=== PATIENT | female | born 1945 | race Caucasian/White ===

== ENCOUNTER 2016-09-19 09:36 | Day surgery (SDC) | payer MEDICARE ==
[~2016-09-19 09:36] MED LIST: RINGERS SOLUTION,LACTATED 1,000 ML IV PRN
--- OUTSIDE RECORDS SUMMARY | 2016-09-19 09:40 | XMS REPORT | Continuity of Care Document ---
:1945 Author Organization [facility] ([facility]) [place] [address] Phone [phone] Care Team Providers Name Role Phone Louis Moore Primary Care Provider [phone] Source Comments This disclosure is being made pursuant to the Care Everywhere program, applicable federal and state laws, and may not contain all informaitonavailable regarding this patient.[facility] ([facility]) Active Allergies and Adverse Reactions Allergen Noted Date Severity Reactions Comments Other Agent 01/18/2016 OTHER Adhesive tape. If left on to long her skin begins to burn and itch Current Medications Prescription Sig. Disp. Refills Start Date End Date Status lisinopril-hydrochlorot Take 2 Tabs by 09/20/2012 Active hiazide 20-12.5 mg per mouth daily tablet metoPROLol succinate Take 100 mg by 09/20/2012 Active 100 mg XL tablet mouth 2 times daily atorvastatin 80 mg 80 mg at 10/12/2015 Active tablet bedtime. traMADol 50 mg tablet Take 50 mg by 09/30/2015 Active mouth as needed. FLECAINIDE 150 mg TAKE ONE-HALF 180 tablet 3 12/30/2015 Active tablet (1/2) TABLET EVERY 12 HOURS Active Problems Problem Noted Date Raynaud's syndrome 10/16/2014 Essential hypertension, benign 10/11/2014 Hypercholesterolemia without hypertriglyceridemia 10/17/2013 Episodic atrial fibrillation Overview: Formatting of this note may be different from the original. CARDIOVASCULAR PROCEDURES ECHO/MUGA: FRANCES (There is mild concentric left ventricular hypertrophy. Left ventricular systolic function is normal. There is mild to moderate mitral regurgitation. No thrombus is detected in the left atrial appendage. 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/11/2014 Pain in joint, hand 12/09/2005 10/11/2014 Social History Tobacco Use Types Packs/Day Years Used Date Never Smoker Smokeless Tobacco: Never Used Alcohol Use Drinks/Week oz/Week Comments Yes 2 Cans of beer Last Filed Vital Signs Vital Sign Reading Time Taken Blood Pressure 138/63 01/29/2016 10:23 AM CDT Pulse 57 01/29/2016 10:23 AM CDT Temperature 36.9 C (98.42 F) 06/13/2008 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 Respiratory Rate - - Height 1.702 m (5' 7.01") 01/18/2016 3:08 PM CDT Weight 82.6 kg (182 lb 1.6 oz) 01/18/2016 3:08 PM CDT Body Mass Index 28.51 01/18/2016 3:08 PM CDT Oxygen Saturation - - Plan of Care Date Type Specialty Providers Description 11/29/2016 Appointment Heart and Vascular Tavia Aguirre MD Subj: Appointment [address] [place] [address] [phone] (Fax) Health Maintenance Due Date Last Done Comments HCV Screening 1945 Hepatitis B Vaccine (1 of 3 - Primary Series) 1945 Tdap Vaccine 1957 Lipid Disorder Screening 1964 Td Vaccine 1964 Mammogram 1986 Colonoscopy 09/10/1996 Zoster Vaccine 2006 Osteoporosis Screening (DXA Bone Density) 09/12/2011 Pneumococcal Vaccine (1 of 2 - PCV13) 09/12/2011 Influenza Vaccine: Seasonal (Season Ended) 2016 Results from Last 3 Months Not on file
[2016-09-19] MEDS ORDERED: RINGERS SOLUTION,LACTATED 1,000 ML IV PRN (11:23)
[2016-09-19 12:38] VITALS: BP 102/42
--- NOTE | 2016-09-19 17:37 | OR ---
Operative Report - Dictated Report Narrative: OPERATIVE REPORT DATE OF OPERATION: 09/19/2016 PREOPERATIVE DIAGNOSIS: No recent dedicated colon studies. History of colon "polyps" POSTOPERATIVE DIAGNOSIS: Sigmoid diverticulosis OPERATION: Colonoscopy SURGEON: Baylee Santiago MD ANESTHESIA: ILANA Kim CRNA INDICATIONS FOR PROCEDURE: The patient is a 70-year-old female referred by Dr. Moore. Her last colonoscopy was in 2006. The report mentions removal of a polyp, but the pathology report is not available. There is no family history of colon cancer. The patient has somewhat irregular bowel habit. FINDINGS: Sigmoid diverticulosis, somewhat redundant colon, otherwise normal colonoscopy to the cecum NARRATIVE OF PROCEDURE: The patient was identified in the holding area, and prior to the administration of anesthetic, a multidisciplinary timeout was observed. With the patient in the left lateral position and after the administration of intravenous sedation, the perineum was inspected. There was no evidence of pilonidal disease or skin breakdown. The external appearance of the anus was normal. Sphincter tone was good. The flexible fiberoptic colonoscope was inserted into the rectum which was insufflated with air. The rectal mucosa and submucosal vascular pattern appeared normal, the prep was seen to be complete. The scope was advanced through the sigmoid colon, which contained numerous not impacted noninflamed diverticular openings. The scope was advanced up the descending colon, and around the splenic flexure where the triangular haustral architecture of the transverse colon was seen. The scope was advanced across the transverse colon, around the hepatic flexure to the cecum, where the confluence of tenia and the ileocecal valve were identified. The mucosa at this level appeared normal. The scope was then slowly withdrawn in a circular fashion so that all aspects of colonic mucosa were inspected. The colon was redundant in course and slightly capacious in character requiring the use of standard reduction maneuvers to reach the cecum. The haustral architecture appeared well preserved throughout with no evidence of external compression. The mucosa and submucosal vascular pattern appeared normal, specifically there was no gross evidence to suggest colitis or inflammatory bowel disease and no AV malformations were seen. The diverticulosis was moderate in degree and confined primarily to the sigmoid colon. No polyps were encountered. The scope was gradually withdrawn to the level of the rectum. As much insufflated air as possible was removed. The scope was withdrawn from the patient and the procedure terminated. The patient tolerated the anesthetic and procedure well without complication and was transferred back to the ambulatory surgery area awake and in stable condition. The patient remained stable throughout a period of postoperative observation. She denied abdominal discomfort, was able to tolerate by mouth intake, and was up without assistance. I shared the operative findings with the patient and she was given copies of the photographs which appear in the medical record. She was discharged home with instructions not to engage in hazardous activity today , but may resume normal activity tomorrow, and advance diet as tolerated. She is to continue those medications as listed in the history and physical exam. A pamphlet on diverticular disease was reviewed with her and given to her RECOMMENDATION: Colon surveillance in 10 years depending upon findings and symptoms Reviewed and electronically signed
== END 2016-09-19 09:37 | disposition home or self-care (01) ==
LOC: AMB 09:36
PROVIDERS: ATTEND Surgery
PROC: 0DJD8ZZ Inspection of Lower Intestinal Tract, Via Natural or Artificial Opening Endoscopic (ICD-10-PCS; principal; 2016-09-19 11:00)
DX: Z12.11 Encounter for screening for malignant neoplasm of colon (principal); K57.30 Diverticulosis of large intestine without perforation or abscess without bleeding; I10 Essential (primary) hypertension; I48.91 Unspecified atrial fibrillation; E78.5 Hyperlipidemia, unspecified; D64.9 Anemia, unspecified; Z68.29 Body mass index [BMI] 29.0-29.9, adult; Z86.010 Personal history of colon polyps

== ENCOUNTER 2017-05-24 09:59 | Observation (INO) | payer MEDICARE ==
--- NOTE | 2017-05-24 10:19 | ERNOTE ---
CARDIAC HPI - Narrative Date of Service: 05/24/17 - General Time Seen by Provider: 05/24/17 10:06 Source: patient Exam Limitations: no limitations - History of Present Illness Initial Comments: Pt. comes in with 18 hour c/o palpitations. Pt. also states that she has begun to feel weak and fatigued for 6 hours and states that she is feeling worse the longer that she is up. Pt. denies any SOB, CP, NVD, fever, alleviating factors or aggravating factors. Pt. states taht she was here a week ago and cardioverted and her medications were changed and she improved until last night. Timing/Duration: getting worse Severity: mild Activities at Onset: none Modifying Factors - (Improves): Reports: none Modifying Factors - (Worsens): Reports: movement Nitro Today/Relief: no nitro taken today Aspirin Treatment Today: no aspirin today Associated Symptoms: Present: malaise, weakness. Absent: shortness of breath - Immun/Allergies/Home Medicatons Immunizations: IMMUNIZATION HX Immunizations Up to Date Yes History of Influenza Vaccine Yes Hx Pneumococcal Vaccination Yes Allergies/Adverse Reactions: Allergies Allergy/AdvReac Type Severity Reaction Status Date / Time adhesive Allergy Mild TAPE Verified 05/24/17 10:15 CAUSES RASH/HIVES Home Medications: Ambulatory Orders Medication Instructions Recorded Atorvastatin Calcium [Lipitor] 80 mg PO HS 03/26/14 Metoprolol Succinate [Toprol Xl] 100 mg PO BID 03/26/14 Polyethylene Glycol 3350 [Miralax] 17 gm PO DAILY PRN 03/26/14 Albuterol Sulfate [Ventolin HFA] 1 - 2 puff IH Q6H PRN 09/09/16 Fluticasone Propionate [Flonase] 1 spray NS DAILY 09/09/16 Apixaban [Eliquis] 5 mg PO BID 05/11/17 Flecainide Acetate 100 mg PO BID #60 tablet 05/12/17 Lisinopril [Zestril] 20 mg PO BID 05/18/17 traMADol HCL [Ultram] 100 mg PO TID PRN 05/18/17 Hydrochlorothiazide [Hydrodiuril] 25 mg PO DAILY #30 tablet 05/19/17 Omeprazole 40 mg PO DAILY #30 capsule. 05/19/17 Potassium Chloride [K-Dur] 20 meq PO DAILY tablet. 05/19/17 Review of Systems - Review of Systems Constitutional: Present: fatigue, malaise, weakness. Absent: fever, recent illness, sweating EENTM: Present: no symptoms reported Respiratory: Present: no symptoms reported. Absent: cough, orthopnea, short of breath Cardiology: Present: palpitations. Absent: chest pain Gastrointestinal/Abdominal: Present: no symptoms reported. Absent: abdominal pain, nausea, vomiting Genitourinary: Present: no symptoms reported Musculoskeletal: Present: no symptoms reported. Absent: back pain, neck pain Skin: Present: no symptoms reported. Absent: change in color, lesions, lumps, rash Neurological: Present: no symptoms reported. Absent: dizziness/light-headness, headache, numbness All Other Systems: All systems neg except as marked - Patient's Past Medical History Patient History - Medical: Anemia, Arthritis, Osteoarthritis, Renal Failure Patient History - Cardiac/Respiratory: Atrial Fibrillation, Bronchitis, Hypertension, Hyperlipidemia Patient History - Cancer: No Hx of Cancer Patient History - Surgical Procedures: Appendectomy, Cataracts, Colonoscopy, Hysterectomy, Total Hip Replacement Patient History - Other: None - Family History Mother Family History - Medical: , No pertinent hx Family History - Cardiac/Respiratory: Asthma Family History - Cancer: Other Father Family History - Medical: , No pertinent hx Family History - Cardiac/Respiratory: COPD, Other Family History - Cancer: Other - Social History Abuse History: No History of abuse Psych History: No pertinent hx - Immunizations Immunizations Up to Date: Yes Hx Pneumococcal Vaccination: Yes History of Influenza Vaccine: Yes CP Exam - Physical Exam General Appearance: Present: WD/WN, no apparent distress ED Progress - Date and Time Seen: Date and Time: 05/24/17 10:[address] Tavia Aguirre and discussed with her nurse Roge as Dr Aguirre is in a patient room. 05/24/17 12:17 Roge returned call after I called back and requested once again to speak with Dr Aguirre. roge relayed per Dr Aguirre that as pt. is chronic with this she feels that this is not emergent and that she can be seen tomorrow when she is here. Discussed with Dr Moore and he is accepting of pt. for obs. - PROGRESS/REASSESSMENT Condition: Unchanged - VITAL SIGNS Patient's Vital Signs:: I have reviewed the patient's vital signs. Vital Signs Temp Pulse Resp BP Pulse Ox 36.1 C L 86 14 111/66 100 05/24/17 10:07 05/24/17 10:40 05/24/17 10:07 05/24/17 10:40 05/24/17 10:40 - RESULTS AND ORDERS Patient's Lab Results:: I have reviewed the patient's lab results. Results and Orders: 05/24/17 12:21 Abnormal Lab Results 05/24/17 05/24/17 05/24/17 Range/Units 10:15 10:15 10:56 RBC 4.14 L (4.2-5.4) M/mm3 Hct 36.6 L (37.0-47.0) % MPV 11.0 H (6.0-9.5) fl Neutrophils % 77.4 H (42-75.0) % Lymphocytes % 14.6 L (20-51) % Lymphocytes # 0.9 L (1.5-3.5) k/mm3 Potassium 3.3 L (3.4-4.6) mmol/L Carbon Dioxide 34.7 H (24-32.6) mmol/L Creatinine 1.56 H (0.4-1.4) mg/dL Est GFR (Non-Af Amer) 35 L D (60-130) mL/min Random Glucose 127 H (70-110) mg/dL B-Natriuretic Peptide 3018 H (5-325) pg/mL Albumin 3.1 L (3.4-5.0) gm/dl Ur Leukocyte Esterase 75 H (NEGATIVE) /ul - X-Ray X-Ray #1 XRAY: chest X-Ray Interpretation: Reviewed by me X-Ray Comments: mild cardiomegaly, stable, no acute findings Departure - Departure Clinical Impression: Elevated brain natriuretic peptide (BNP) level, Dizziness Atrial fibrillation Qualifiers: Atrial fibrillation type: paroxysmal Qualified Code(s): I48.0 - Paroxysmal atrial fibrillation Disposition: [facility] Condition: Serious Referrals: Louis Moore MD [Primary Care Provider] -
[2017-05-24 10:21] LABS: Hematocrit 36.6 % (37.0-47.0); Hemoglobin 12.5 gm/dL (12.5-16.0); Mean Cell Volume 88.4 fl (78-100); Mean Corpuscular Hemoglobin 30.2 pg (27-31); Mean Corpuscular Hgb Conc 34.2 g/dl (32-36); Neutrophil # 4.8 K/mm3 (1.3-6.0); Neutrophil % 77.4 % (42-75.0); Platelet Count 234 K/mm3 (150-450); Red Blood Count 4.14 M/mm3 (4.2-5.4); Red Cell Distribution Width 13.7 % (11.5-14.0); White Blood Count 6.2 K/mm3 (4.0-10.5)
[2017-05-24 10:42] LABS: Troponin I Less than 0.017 ng/ml (0.00-0.10)
[2017-05-24 10:46] LABS: ALT 23 U/L (19-67); AST 21 U/L (0-48); Albumin * 3.1 gm/dl (3.4-5.0); Alkaline Phosphatase * 80 U/L (50-170); Anion Gap 7.6 mmol/L (6.8-13.8); BNP * 3018 pg/mL (5-325); BUN/Creatinine Ratio 10.9 (9.0-21.6); Bilirubin, Total 0.8 mg/dL (0.0-1.1); Blood Urea Nitrogen 17 mg/dL (3-23); Ca. Corrected For Albumin 9.4 mg/dL (8.4-10.2); Carbon Dioxide 34.7 mmol/L (24-32.6); Chloride 99 mmol/L (97-106); Glucose * 127 mg/dL (70-110); Potassium 3.3 mmol/L (3.4-4.6); Sodium 138 mmol/L (132-142); T4 Free * 1.24 ng/dL (0.76-1.46); TSH * 1.318 uIU/mL (0.358-3.74); Total Protein 7.1 gm/dL (6.2-8.2)
[2017-05-24] MEDS ORDERED: NORMAL SALINE 1,000 ML IV ONE (10:47)
[2017-05-24 11:08] LABS: Urine Bilirubin Negative (NEGATIVE); Urine Blood Negative /ul (NEGATIVE); Urine Ketone Negative (NEGATIVE); Urine Nitrite Negative (NEGATIVE); Urine Protein Negative (NEGATIVE); Urine Specific Gravity 1.015 SP.GR. (1.005-1.010); Urine Urobilinogen Normal (NORMAL)
[2017-05-24 11:17] LABS: Urine Appearance Clear; Urine Color Dark Yellow
[2017-05-24 11:18] LABS: Urine Bacteria TRACE; Urine RBC None Seen /hpf (0-5); Urine WBC 0-5 /hpf (0-5)
[2017-05-24] MEDS ORDERED: POTASSIUM CHLORIDE 20 MEQ TABLET.SA PO ONE (12:14)
[2017-05-24] MEDS ORDERED: POTASSIUM CHLORIDE 20 MEQ TABLET.SA ONE (12:18)
[2017-05-24] MEDS ORDERED: FLECAINIDE ACETATE 100 MG TABLET PO ONE (12:30)
[2017-05-24] MEDS ORDERED: CEPHALEXIN MONOHYDRATE 250 MG CAPSULE ONE (13:03)
[2017-05-24] MEDS: CEPHALEXIN MONOHYDRATE 500 MG CAPSULE PO SCH ×2 (13:05→21:41)
--- NOTE | 2017-05-24 15:57 | HP ---
Chief Complaint - Chief Complaint Date of Service: 05/24/17 Time of Service: 15:43 Chief Complaint: weakness and presyncope. History of Present Illness: Reena Barksdale, is a 71-year-old white female, with previous medical history of paroxysmal atrial fibrillation, status post cardioversion in the past, hypertension, hyperlipidemia, who was admitted 05/24/2017 because of weakness and near passing out. The patient was just recently discharged here after having an electrocardioversion for her paroxysmal atrial fibrillation about 2 weeks ago. The patient was doing well until about last night when she went to her bed and noticed that her heart was in and out but she thought it might just go away. She was not having palpitations or fast heart rate. This morning she noticed that her heart rate was still irregular however not racing. She was getting weaker though and nearly passed out. She then went to our emergency room where she was found to be back in atrial fibrillation however with a controlled ventricular response in the 70s to 80s. She was, however, orthostatic with her blood pressure going to the 70s when she stood up. She was also found to have a creatinine of 1.5 and a urinary tract infection. She was started on IV fluids and an extra 100 mg of fleicainide was given. She was also started on PO antibiotics. She was given an extra Klor Con . The ED was able to get in touch with her family sociologist via her nurse and she is going to see the patient in her office tomorrow. - Patient's Past Medical History Patient History - Medical: Anemia, Arthritis, Osteoarthritis, Renal Failure Patient History - Cardiac/Respiratory: Atrial Fibrillation, Bronchitis, Hypertension, Hyperlipidemia Patient History - Cancer: No Hx of Cancer Patient History - Surgical Procedures: Appendectomy, Cataracts, Colonoscopy, Hysterectomy, Total Hip Replacement Patient History - Other: None LMP (females 10-50): other - Family History Mother Family History - Medical: , No pertinent hx Family History - Cardiac/Respiratory: Asthma Family History - Cancer: Other Father Family History - Medical: , No pertinent hx Family History - Cardiac/Respiratory: COPD, Other Family History - Cancer: Other - Social History Living Situations: alone Abuse History: No History of abuse Psych History: No pertinent hx Smoking Status: Never smoker Have you smoked in the past 12 months: No Alcohol Use: none Drug Use: none - Immunizations Immunizations Up to Date: Yes Hx Pneumococcal Vaccination: Yes History of Influenza Vaccine: Yes Review Of Systems (GEN) - Review of Systems Generalized/Overall Review: Present: Weakness. Absent: Chills, Fever Respiratory: Absent: Cough, Shortness of Breath Cardiac: Absent: Chest Pain, Edema, Palpitations Abdominal: Absent: Nausea, Vomiting Genitourinary: Absent: Urgency, Frequency Neurological: Present: Other - presyncopal Immunizations: IMMUNIZATION HX Immunizations Up to Date Yes History of Influenza Vaccine Yes Hx Pneumococcal Vaccination Yes Allergies/Adverse Reactions: Allergies Allergy/AdvReac Type Severity Reaction Status Date / Time adhesive Allergy Mild TAPE Verified 05/24/17 14:12 CAUSES RASH/HIVES Home Medications: HOME MEDICATIONS Atorvastatin Calcium [Lipitor] 80 mg PO HS 03/26/14 [Last Taken Unknown] Metoprolol Succinate [Toprol Xl] 100 mg PO BID 03/26/14 [Last Taken 09/18/16 22: 00] Polyethylene Glycol 3350 [Miralax] 17 gm PO DAILY PRN 03/26/14 [Last Taken Unknown] Albuterol Sulfate [Ventolin HFA] 1 - 2 puff IH Q6H PRN 09/09/16 [Last Taken Unknown] Fluticasone Propionate [Flonase] 1 spray NS DAILY 09/09/16 [Last Taken Unknown] Apixaban [Eliquis] 5 mg PO BID 05/11/17 [Last Taken Unknown] Flecainide Acetate 100 mg PO BID #60 tablet 05/12/17 [Last Taken Unknown] Lisinopril [Zestril] 20 mg PO BID 05/18/17 [Last Taken Unknown] traMADol HCL [Ultram] 100 mg PO TID PRN 05/18/17 [Last Taken Unknown] Hydrochlorothiazide [Hydrodiuril] 25 mg PO DAILY #30 tablet 05/19/17 [Last Taken Unknown] Omeprazole 40 mg PO DAILY #30 capsule. 05/19/17 [Last Taken Unknown] Potassium Chloride [K-Dur] 20 meq PO DAILY tablet.sa 05/19/17 [Last Taken Unknown] Exam - Exam Vital Signs: Vital Signs - Last Taken Temp 36.5 C 05/24/17 12:33 Pulse 80 05/24/17 15:15 Resp 75 H 05/24/17 13:06 BP 93/57 05/24/17 13:06 Pulse Ox 99 05/24/17 13:06 Constitutional: Present: Alert, Oriented x3, Cooperative ENT Exam: Present: hearing grossly normal Eye Exam: bilateral eye: normal inspection, PERRL, EOMI Neck: Present: supple Back Exam: Present: no CVA tenderness Respiratory: Present: normal breath sounds, No rales, No wheezing Cardiovascular/Chest: Present: no JVD, no murmur, irregularly irregular Abdomen: Present: Normal bowel sounds, soft, nontender, nondistended Extremity: Present: no pedal edema, no calf tenderness Diagnostic Studies: Laboratory Results WBC 6.2 K/mm3 (4.0-10.5) 05/24/17 10:15 RBC 4.14 M/mm3 (4.2-5.4) L 05/24/17 10:15 Hgb 12.5 gm/dL (12.5-16.0) 05/24/17 10:15 Hct 36.6 % (37.0-47.0) L 05/24/17 10:15 MCV 88.4 fl (78-100) 05/24/17 10:15 MCH 30.2 pg (27-31) 05/24/17 10:15 MCHC 34.2 g/dl (32-36) 05/24/17 10:15 RDW 13.7 % (11.5-14.0) 05/24/17 10:15 Plt Count 234 K/mm3 (150-450) 05/24/17 10:15 MPV 11.0 fl (6.0-9.5) H 05/24/17 10:15 Immature Gran % (Auto) 0.30 % (0.001-0.429) 05/24/17 10:15 Immature Gran # (Auto) 0.02 K/mm3 (0.000-0.0310) 05/24/17 10:15 Neutrophils % 77.4 % (42-75.0) H 05/24/17 10:15 Lymphocytes % 14.6 % (20-51) L 05/24/17 10:15 Monocytes % 5.9 % (0.0-9) 05/24/17 10:15 Eosinophils % 1.5 % (0.0-3.0) 05/24/17 10:15 Basophils % 0.3 % (0.0-1.0) 05/24/17 10:15 Nucleated RBC % 0.0 k/mm3 (0-1) 05/24/17 10:15 Neutrophils # 4.8 K/mm3 (1.3-6.0) 05/24/17 10:15 Lymphocytes # 0.9 k/mm3 (1.5-3.5) L 05/24/17 10:15 Monocytes # 0.4 k/mm3 (0.0-1.0) 05/24/17 10:15 Eosinophils # 0.1 k/mm3 (0.0-0.7) 05/24/17 10:15 Absolute Basophils 0.0 k/mm3 (0.0-0.1) 05/24/17 10:15 Sodium 138 mmol/L (132-142) 05/24/17 10:15 Plasma Sodium 138 mmol/L (130-142) 05/24/17 10:15 Potassium 3.3 mmol/L (3.4-4.6) L 05/24/17 10:15 Chloride 99 mmol/L (97-106) 05/24/17 10:15 Carbon Dioxide 34.7 mmol/L (24-32.6) H 05/24/17 10:15 Anion Gap 7.6 mmol/L (6.8-13.8) 05/24/17 10:15 BUN 17 mg/dL (3-23) 05/24/17 10:15 Creatinine 1.56 mg/dL (0.4-1.4) H 05/24/17 10:15 Est GFR (Non-Af Amer) 35 mL/min (60-130) L D 05/24/17 10:15 BUN/Creatinine Ratio 10.9 (9.0-21.6) 05/24/17 10:15 Random Glucose 127 mg/dL (70-110) H 05/24/17 10:15 Calcium 9.0 mg/dL (7.9-10.9) 05/24/17 10:15 Calcium Adj for Albumin 9.4 mg/dL (8.4-10.2) 05/24/17 10:15 Total Bilirubin 0.8 mg/dL (0.0-1.1) 05/24/17 10:15 AST 21 U/L (0-48) 01/03/18 10:15 ALT 23 U/L (19-67) 05/24/17 10:15 Alkaline Phosphatase 80 U/L (50-170) 05/24/17 10:15 Troponin I Less than 0.017 ng/ml (0.00-0.10) 05/24/17 10:15 B-Natriuretic Peptide 3018 pg/mL (5-325) H 05/24/17 10:15 Total Protein 7.1 gm/dL (6.2-8.2) 05/24/17 10:15 Albumin 3.1 gm/dl (3.4-5.0) L 05/24/17 10:15 TSH 1.318 uIU/mL (0.358-3.74) 05/24/17 10:15 Free T4 1.24 ng/dL (0.76-1.46) 05/24/17 10:15 Urine Color Dark yellow 05/24/17 10:56 Urine Appearance Clear 05/24/17 10:56 Urine pH 7.0 pH (5.0-7.0) 05/24/17 10:56 Ur Specific Mclean 1.015 SP.GR. (1.005-1.010) 05/24/17 10:56 Urine Protein Negative mg/dL (NEGATIVE) 05/24/17 10:56 Urine Glucose (UA) Negative mg/dL (NEGATIVE) 05/24/17 10:56 Urine Ketones Negative mg/dL (NEGATIVE) 05/24/17 10:56 Urine Blood Negative /ul (NEGATIVE) 05/24/17 10:56 Urine Nitrate Negative (NEGATIVE) 05/24/17 10:56 Urine Bilirubin Negative mg/dl (NEGATIVE) 05/24/17 10:56 Urine Urobilinogen Normal EU/dl (NORMAL) 05/24/17 10:56 Ur Leukocyte Esterase 75 /ul (NEGATIVE) H 05/24/17 10:56 Urine RBC None seen /hpf (0-5) 05/24/17 10:56 Urine WBC 0-5 /hpf (0-5) 05/24/17 10:56 Ur Epithelial Cells 0-5 /hpf (0-5) 05/24/17 10:56 Urine Bacteria Trace (NONE) 05/24/17 10:56 Urine Culture Comments Culture to follow 05/24/17 10:56 Assessment/Plan - Assessment/Plan (1) Dizziness Assessment: likely due to orthostasis. continune with IVF. Problem: Acute (2) Elevated brain natriuretic peptide (BNP) level Assessment: due to AFib. CXR showed no congestion. Problem: Acute (3) Atrial fibrillation Assessment: continue with telemetry. continue with fleiciainide and metoprolol. Problem: Chronic Qualifiers: Atrial fibrillation type: paroxysmal Qualified Code(s): I48.0 - Paroxysmal atrial fibrillation (4) Pre-syncope Assessment: due to orhtostasis. continue with IVF Problem: Acute
[2017-05-24] MEDS ORDERED: traMADol HCL 50 MG TABLET PO PRN (15:58)
[2017-05-24] MEDS ORDERED: POLYETHYLENE GLYCOL 3350 119 GM BTL PO PRN (15:58)
[2017-05-24] MEDS: NORMAL SALINE 1,000 ML IV PRN (16:58)
[2017-05-24] MEDS ORDERED: ATORVASTATIN CALCIUM 40 MG TABLET PO SCH (21:00)
[2017-05-24] MEDS ORDERED: LISINOPRIL 20 MG TABLET PO SCH (21:00)
[2017-05-24] MEDS: APIXABAN 2.5 MG TABLET PO SCH (21:41)
[2017-05-24] MEDS: FLECAINIDE ACETATE 100 MG TABLET PO SCH (21:43)
[2017-05-24] MEDS: METOPROLOL SUCCINATE 100 MG TABLET.SA PO SCH (21:49)
[2017-05-25] MEDS: NORMAL SALINE 1,000 ML IV PRN (03:04)
[2017-05-25] MEDS: CEPHALEXIN MONOHYDRATE 500 MG CAPSULE PO SCH (04:41)
[2017-05-25 05:47] LABS: Hematocrit 28.9 % (37.0-47.0); Hemoglobin 9.8 gm/dL (12.5-16.0); Mean Cell Volume 88.9 fl (78-100); Mean Corpuscular Hemoglobin 30.2 pg (27-31); Mean Corpuscular Hgb Conc 33.9 g/dl (32-36); Neutrophil # 3.4 K/mm3 (1.3-6.0); Neutrophil % 63.1 % (42-75.0); Platelet Count 166 K/mm3 (150-450); Red Blood Count 3.25 M/mm3 (4.2-5.4); Red Cell Distribution Width 13.7 % (11.5-14.0); White Blood Count 5.4 K/mm3 (4.0-10.5)
[2017-05-25 06:06] LABS: Anion Gap 6.1 mmol/L (6.8-13.8); BUN/Creatinine Ratio 11.6 (9.0-21.6); Calcium * 8.3 mg/dL (7.9-10.9); Carbon Dioxide 30.2 mmol/L (24-32.6); Estimated Creat Clear 35.7; Potassium 3.3 mmol/L (3.4-4.6)
[2017-05-25] MEDS ORDERED: PANTOPRAZOLE SODIUM 40 MG TABLET.EC PO SCH (07:00)
[2017-05-25 07:39] VITALS: BP 125/56
[2017-05-25] MEDS ORDERED: POTASSIUM CHLORIDE 20 MEQ TABLET.SA PO ONE (07:54)
[2017-05-25] MEDS ORDERED: LISINOPRIL 10 MG TABLET PO SCH (07:56)
--- NOTE | 2017-05-25 08:03 | DS ---
(1) Dizziness Problem: Acute (2) Elevated brain natriuretic peptide (BNP) level Problem: Acute (3) Atrial fibrillation Problem: Chronic Qualifiers: Atrial fibrillation type: paroxysmal Qualified Code(s): I48.0 - Paroxysmal atrial fibrillation (4) Pre-syncope Problem: Acute Description of Stay: Reena Barksdale, is a 71-year-old white female, with previous medical history of paroxysmal atrial fibrillation, status post cardioversion in the past, hypertension, hyperlipidemia, who was admitted 05/24/2017 because of weakness and near passing out. The patient was just recently discharged here after having an electrocardioversion for her paroxysmal atrial fibrillation about 2 weeks ago. The patient was doing well until about last night when she went to her bed and noticed that her heart was in and out but she thought it might just go away. She was not having palpitations or fast heart rate. This morning she noticed that her heart rate was still irregular however not racing. She was getting weaker though and nearly passed out. She then went to our emergency room where she was found to be back in atrial fibrillation however with a controlled ventricular response in the 70s to 80s. She was, however, orthostatic with her blood pressure going to the 70s when she stood up. She was also found to have a creatinine of 1.5 and a urinary tract infection. She was started on IV fluids and an extra 100 mg of fleicainide was given. She was also started on PO antibiotics. She was given an extra Klor Con . The ED was able to get in touch with her cafeteria director via her nurse and she is going to see the patient in her office tomorrow. She was admitted for observation and IVF were continued. She has improved but still in AFib rate controlled . We will stop her Her HCTZ, KCl, and cut her Lisinopril in half. She will continue with Fleicianinde and Metoprolol. Procedures Performed: none Discharge Disposition: Home self care Disposition: Home self-care Condition: Serious Referrals: Louis Moore MD [Primary Care Provider] - Additional Patient Instructions (free text): Please make TCM appointment unless alf discharge. Thank you! Gavi @ [phone]. Follow up with PCP in 1 week[address] Needs to see Dr. Aguirre in her office today. Prescriptions (Any new or edited meds): Cephalexin Monohydrate [Keflex] 500 mg PO Q8H #15 capsule Lisinopril [Zestril] 10 mg PO BID #60 tablet Complete Home Medications List: Complete Home Medication List: Atorvastatin Calcium [Lipitor] 80 mg PO HS 03/26/14 Metoprolol Succinate [Toprol Xl] 100 mg PO BID 03/26/14 Polyethylene Glycol 3350 [Miralax] 17 gm PO DAILY PRN 03/26/14 Fluticasone Propionate [Flonase] 1 spray NS DAILY 09/09/16 Apixaban [Eliquis] 5 mg PO BID 05/11/17 Flecainide Acetate 100 mg PO BID #60 tablet 05/12/17 traMADol HCL [Ultram] 100 mg PO TID PRN 05/18/17 Omeprazole 40 mg PO DAILY #30 capsule. 05/19/17 Cephalexin Monohydrate [Keflex] 500 mg PO Q8H #15 capsule 05/25/17 Lisinopril [Zestril] 10 mg PO BID #60 tablet 05/25/17
[2017-05-25] MEDS: APIXABAN 2.5 MG TABLET PO SCH (08:32)
[2017-05-25] MEDS: FLECAINIDE ACETATE 100 MG TABLET PO SCH (08:35)
[2017-05-25] MEDS: METOPROLOL SUCCINATE 100 MG TABLET.SA PO SCH (08:51)
[2017-05-25] MEDS ORDERED: POTASSIUM CHLORIDE 20 MEQ TABLET.SA PO SCH (09:00)
[2017-05-25] MEDS ORDERED: FLUTICASONE PROPIONATE 120 SPRAY INHALER NS SCH (09:00)
[2017-05-25] MEDS ORDERED: HYDROCHLOROTHIAZIDE 25 MG TABLET PO SCH (09:00)
== END 2017-05-25 10:00 | disposition home or self-care (01) ==
LOC: ER 09:59 → MS 12:13
PROVIDERS: ADMIT Internal Medicine; ATTEND Internal Medicine
DX: I48.0 Paroxysmal atrial fibrillation (principal); N39.0 Urinary tract infection, site not specified; R78.89 Finding of other specified substances, not normally found in blood; I95.1 Orthostatic hypotension; I10 Essential (primary) hypertension; E78.5 Hyperlipidemia, unspecified; Z68.28 Body mass index [BMI] 28.0-28.9, adult

== ENCOUNTER 2017-07-01 08:03 | Emergency (ER) | payer MEDICARE ==
[2017-07-01 09:01] LABS: Hematocrit 27.7 % (37.0-47.0); Hemoglobin 9.2 gm/dL (12.5-16.0); Mean Cell Volume 91.7 fl (78-100); Mean Corpuscular Hemoglobin 30.5 pg (27-31); Mean Corpuscular Hgb Conc 33.2 g/dl (32-36); Mean Platelet Volume 12.3 fl (6.0-9.5); Neutrophil # 7.1 K/mm3 (1.3-6.0); Neutrophil % 85.3 % (42-75.0); Platelet Count 147 K/mm3 (150-450); Red Blood Count 3.02 M/mm3 (4.2-5.4); Red Cell Distribution Width 14.1 % (11.5-14.0); White Blood Count 8.4 K/mm3 (4.0-10.5)
[2017-07-01 09:22] LABS: ALT 49 U/L (19-67); AST 30 U/L (0-48); Albumin * 2.9 gm/dl (3.4-5.0); Alkaline Phosphatase * 79 U/L (50-170); Amylase * 54 U/L (25-115); BNP * 2182 pg/mL (5-325); BUN/Creatinine Ratio 11.7 (9.0-21.6); Blood Urea Nitrogen 21 mg/dL (3-23); Ca. Corrected For Albumin 8.9 mg/dL (8.4-10.2); Calcium * 8.3 mg/dL (7.9-10.9); Carbon Dioxide 31.1 mmol/L (24-32.6); Chloride 102 mmol/L (97-106); Glucose * 117 mg/dL (70-110); Lipase 113 U/L (73-393); Potassium 3.1 mmol/L (3.4-4.6); Sodium 137 mmol/L (132-142); Total Protein 6.7 gm/dL (6.2-8.2); Troponin I Less than 0.017 ng/ml (0.00-0.10)
[2017-07-01 10:42] LABS: Urine Bilirubin Negative (NEGATIVE); Urine Blood Negative /ul (NEGATIVE); Urine Ketone Negative (NEGATIVE); Urine Nitrite Negative (NEGATIVE); Urine Protein 30 mg/dL (NEGATIVE); Urine Specific Gravity 1.015 SP.GR. (1.005-1.010)
[2017-07-01 10:53] LABS: Urine Appearance Slightly Cloudy; Urine Bacteria TRACE; Urine Color Dark Yellow; Urine RBC None Seen /hpf (0-5); Urine WBC None Seen /hpf (0-5)
[2017-07-01] MEDS ORDERED: ACETAMINOPHEN 500 MG TABLET PO ONE (11:26)
--- NOTE | 2017-07-01 12:21 | ERNOTE ---
Dyspnea - Date Date of Service: 07/01/17 - General Presenting Symptoms: shortness of breath, difficulty of breathing Time Seen by Provider: 07/01/17 08:23 Source: patient Exam Limitations: no limitations - Immun/Allergies/Home Medications Immunizations: IMMUNIZATION HX Immunizations Up to Date Yes History of Influenza Vaccine Yes Hx Pneumococcal Vaccination Yes Allergies/Adverse Reactions: Allergies adhesive Allergy (Mild, Verified 07/01/17 08:17) TAPE CAUSES RASH/HIVES Home Medications: HOME MEDICATIONS Atorvastatin Calcium [Lipitor] 80 mg PO HS 03/26/14 [Last Taken Unknown] Metoprolol Succinate [Toprol Xl] 100 mg PO BID 03/26/14 [Last Taken 09/18/16 22: 00] Polyethylene Glycol 3350 [Miralax] 17 gm PO DAILY PRN 03/26/14 [Last Taken Unknown] Fluticasone Propionate [Flonase] 1 spray NS DAILY 09/09/16 [Last Taken Unknown] Apixaban [Eliquis] 5 mg PO BID 05/11/17 [Last Taken Unknown] traMADol HCL [Ultram] 100 mg PO TID PRN 05/18/17 [Last Taken Unknown] Omeprazole 40 mg PO DAILY #30 capsule. 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 Initiating event: Reports: upper resp illness, other - see above Frequency of episodes: Reports: occassional episodes Modifying Factors - (Improves): Reports: rest Modifying Factors (Worsens): Reports: activity Associated Symptoms-Dyspnea: Reports: fever/chills, palpitations, cough Prior Treatment: Reports: recently seen, treated by physician, recently hospitalized Review of Systems - Review of Systems Constitutional: Present: See HPI, fatigue, malaise EYE: Present: no symptoms reported ENT: Present: no symptoms reported Respiratory: Present: shortness of breath Cardiology: Present: See HPI Gastrointestinal/Abdominal: Present: other - epigastric pain Genitourinary: Present: no symptoms reported Musculoskeletal: Present: no symptoms reported Skin: Present: no symptoms reported Neurological: Present: no symptoms reported Endocrine: Present: no symptoms reported Hematologic/Lymphatic: Present: no symptoms reported Psych: Present: no symptoms reported All Other Systems: All systems neg except as marked - Patient's Past Medical History Patient History - Medical: Anemia, Arthritis, Osteoarthritis, Renal Failure Patient History - Cardiac/Respiratory: Atrial Fibrillation, Bronchitis, Hypertension, Hyperlipidemia Patient History - Cancer: No Hx of Cancer Patient History - Surgical Procedures: Appendectomy, Back Surgery, Cataracts, Colonoscopy, Hysterectomy, Total Hip Replacement Patient History - Other: None LMP (females 10-50): hysterectomy - Family History Family History:: no untoward family reactions to anesthesia, no familial bleeding tendencies, no family history of clotting disorders, no family history of premature - Family History Mother Family History - Medical: , No pertinent hx Family History - Cardiac/Respiratory: Asthma Family History - Cancer: No pertinent family hx, Other Father Family History - Medical: , No pertinent hx Family History - Cardiac/Respiratory: COPD, Other Family History - Cancer: Other - Social History Living Situations: home Abuse History: No History of abuse Psych History: No pertinent hx Does anyone smoke in the home?: No Smoking Status: Never smoker Have you smoked in the past 12 months: No Do you dip or chew tobacco: No Patient requests Smoking Cessation Consult: No Initiate information on Smoking Cessation: No Alcohol Use: none Drug Use: none - Immunizations Immunizations Up to Date: Yes Hx Pneumococcal Vaccination: Yes History of Influenza Vaccine: Yes Physical Exam - Physical Exam Narrative: mild distress General Appearance: Present: mild distress Head Exam: Present: normal inspection, no evidence of injury Eye Exam: Normal inspection: bilateral, PERRL: bilateral, EOMI: bilateral Ears, Nose, Throat: Present: normal ENT inspection Neck: Present: normal inspection, nontender Respiratory: Present: no respiratory distress, normal breath sounds, no accessory muscle use, chest nontender, lungs clear Cardiovascular/Chest: Present: regular rate, rhythm, no murmur, normal peripheral pulses Peripheral Pulses: N=norm/S=strong/W=weak/B=bound/A=absent: Carotid (R): Normal , Carotid (L): Normal, Radial (R): Normal, Radial (L): Normal, Femoral (R): Normal, Femoral (L): Normal, Dorsalis-pedis (R): Normal, Dorsalis-pedis (L): Normal Gastrointestinal/Abdominal: Present: normal bowel sounds, nontender, nondistended, soft, no organomegaly Back Exam: Present: normal inspection, normal range of motion, no CVA tenderness , no vertebral tenderness Extremity Exam: Present: normal inspection, non-tender, normal range of motion, no edema Neurological Exam: Present: alert, oriented, normal mood/affect, no motor/ sensory deficits DTR: N=norm/NB=norm/brisk/A=abs/DD=dull/dimin/HC=hyperactive: Bicep (R): Normal , Bicep (L): Normal, Tricep (R): Normal, Tricep (L): Normal, Knee (R): Normal, Knee (L): Normal, Ankle (R): Normal, Ankle (L): Normal Skin Exam: Present: normal color, warm/dry Lymphatic Exam: Present: no adenopathy ED Progress - Date and Time Seen: Date and Time: 07/01/17 12:15 patient improved - Results and Orders Patient's Lab Results:: I have reviewed the patient's lab results. - Vital Signs Patient's Vital Signs:: I have reviewed the patient's vital signs. Vital Signs: Vital Signs 07/01/17 07/01/17 07/01/17 08:10 08:20 08:50 Temperature 37.3 C 37.3 C Pulse Rate 80 74 73 Respiratory 21 H 21 H 20 Rate Blood Pressure 143/54 143/54 141/52 O2 Sat by Pulse 96 96 98 Oximetry 07/01/17 07/01/17 07/01/17 09:20 09:50 10:30 Temperature Pulse Rate 72 69 75 Respiratory 18 16 15 Rate Blood Pressure 158/61 148/66 147/63 O2 Sat by Pulse 100 98 98 Oximetry 07/01/17 07/01/17 11:23 11:48 Temperature 38.4 C H Pulse Rate 68 75 Respiratory 19 20 Rate Blood Pressure 150/66 161/60 O2 Sat by Pulse 97 99 Oximetry - EKG EKG: NSR EKG read: Interp. by me - X-Ray X-Ray #1 X-Ray: chest - nad Interpretation: Discd w/ radiologist - CT/Ultrasound CT/Ultrasound Narrative: radiologist reports single gall stone normal common bile duct - Progress/Reassessment Chief Complaint: Dyspnea Progress:: Improved - Transfer of Care Expected Disposition: Discharge Plan - Plan Plan: to be discharged Departure Clinical Impression: Dyspnea, Cholelithiasis - Departure Disposition: Home self-care Condition: Fair Instructions: Pulmonary Edema, [id number], Cholelithiasis, [id number] Referrals: Louis Moore MD [Primary Care Provider] - Prescriptions: Doxycycline Hyclate [Morgidox] 100 mg PO BID #20 capsule
[2017-07-01 12:35] VITALS: BP 150/59
== END 2017-07-01 12:30 | disposition home or self-care (01) ==
LOC: ER 08:03
PROC: 4A033R1 Measurement of Arterial Saturation, Peripheral, Percutaneous Approach (ICD-10-PCS; principal; 2017-07-01)
DX: K80.20 Calculus of gallbladder without cholecystitis without obstruction (principal); R06.00 Dyspnea, unspecified; E78.5 Hyperlipidemia, unspecified; I48.91 Unspecified atrial fibrillation; Z79.01 Long term (current) use of anticoagulants; I10 Essential (primary) hypertension